=== PATIENT | female | born 1990 | race Caucasian/White ===

== ENCOUNTER 2021-03-25 20:06 | Emergency (ER) | payer OTHER ==
[2021-03-25 20:47] VITALS: BP 114/69; PULSE 91; TEMP 98.5; BMI 28.3
[2021-03-25] MEDS ORDERED: IBUPROFEN 400 MG TABLET (FP) PO ONE (21:22)
[2021-03-25 21:53] LABS: EPI CELLS 26 /uL (0-25.1); HYALINE CASTS 1 /uL (0-3.1); PH,URINE >= 9.0 (5.0-8.0); URINE APPEARANCE CLEAR; URINE BACTERIA 1023 /uL (0-1359); URINE BILIRUBIN NEGATIVE (NEGATIVE); URINE COLOR YELLOW; URINE GLUCOSE (UA) NEGATIVE (NEGATIVE); URINE KETONE NEGATIVE (NEGATIVE); URINE LEUK ESTERASE 1+ (NEGATIVE); URINE NITRITE NEGATIVE (NEGATIVE); URINE PROTEIN NEGATIVE (NEGATIVE); URINE RBC 5 /uL (0-23.9); URINE WBC 47 /uL (0-25.8)
[2021-03-25 21:54] LABS: HCG,QUALITATIVE URINE Negative
[2021-03-25] MEDS ORDERED: SULFAMETHOXAZOLE/TRIMETHOPRIM 800MG/160MG D.S. TABLET PO ONE (22:12)
[2021-03-25] MEDS ORDERED: SULFAMETHOXAZOLE/TRIMETHOPRIM 800MG/160MG D.S. TABLET ONE (22:49)
== END 2021-03-26 00:31 | disposition home or self-care (01) ==
LOC: JER 20:06
DX: N10 Acute pyelonephritis (principal); N39.0 Urinary tract infection, site not specified
CPT/HCPCS: 76775-TC; 81003; 84703; 87086; 87186; 99284-25

== ENCOUNTER 2023-08-27 01:24 | Emergency (ER) | payer OTHER ==
[2023-08-27 02:00] VITALS: BP 133/89; PULSE 64; RESP 18; TEMP 98.1; BMI 32.2
[2023-08-27] MEDS ORDERED: ACETAMINOPHEN 325 MG TABLET (FP) PO ONE (02:24)
[2023-08-27] MEDS ORDERED: ACETAMINOPHEN 325 MG TABLET (FP) ONE (02:26)
[2023-08-27] MEDS ORDERED: DEXAMETHASONE 4 MG TABLET (FP) PO ONE (02:39)
[2023-08-27] MEDS ORDERED: PSEUDOEPHEDRINE HCL 30 MG TABLET PO ONE (02:40)
[2023-08-27] MEDS ORDERED: DEXAMETHASONE 4 MG TABLET (FP) ONE (02:43)
== END 2023-08-27 03:05 | disposition home or self-care (01) ==
LOC: JER 01:24
DX: R05.9 Cough, unspecified (principal); R51.9 Headache, unspecified; J02.9 Acute pharyngitis, unspecified; M79.10 Myalgia, unspecified site; U07.1 COVID-19
CPT/HCPCS: 0241U-QW; 99283-25

== ENCOUNTER 2023-11-08 11:14 | Day surgery (SDC) | payer OTHER ==
[2023-11-08] MEDS: FERRIC CARBOXYMALTOSE 750 MG in SODIUM CHLORIDE 250 ML IVPB ONE (11:37)
[2023-11-08 13:06] VITALS: RESP 18; TEMP 98.5
[2023-11-08 13:09] VITALS: BP 115/74; PULSE 65
== END 2023-11-08 13:00 | disposition home or self-care (01) ==
LOC: JONCNONCHE 11:14 → J7W 11:16 → JONCNONCHE 13:00
PROVIDERS: ATTEND Internal Medicine Hematology & Oncology
PROC: 3E033GC Introduction of Other Therapeutic Substance into Peripheral Vein, Percutaneous Approach (ICD-10-PCS; principal; 2023-11-08)
DX: D50.9 Iron deficiency anemia, unspecified (principal)
CPT/HCPCS: 96365; J1439

== ENCOUNTER 2023-11-15 10:00 | Day surgery (SDC) | payer OTHER ==
[2023-11-15] MEDS: FERRIC CARBOXYMALTOSE 750 MG in SODIUM CHLORIDE 250 ML IVPB ONE (10:21)
[2023-11-15 12:01] VITALS: RESP 20; TEMP 98
[2023-11-15 12:02] VITALS: BP 122/74; PULSE 69
== END 2023-11-15 11:40 | disposition home or self-care (01) ==
LOC: J7W 10:00 → JONCNONCHE 10:00
PROVIDERS: ATTEND Internal Medicine Hematology & Oncology
PROC: 3E033GC Introduction of Other Therapeutic Substance into Peripheral Vein, Percutaneous Approach (ICD-10-PCS; principal; 2023-11-15)
DX: D50.9 Iron deficiency anemia, unspecified (principal)
CPT/HCPCS: 96365; J1439

== ENCOUNTER 2024-08-20 11:10 | Emergency (ER) | payer OTHER ==
[2024-08-20 11:25] VITALS: BP 108/69; PULSE 76; RESP 20; TEMP 99; BMI 27.4
[2024-08-20] MEDS ORDERED: LIDOCAINE 4% PATCH TP ONE (12:45)
[2024-08-20] MEDS ORDERED: KETOROLAC TROMETHAMINE 30 MG/1 ML VIAL ONE (12:45)
[2024-08-20] MEDS: KETOROLAC TROMETHAMINE 30 MG/1 ML VIAL IM ONE (12:50)
[2024-08-20] MEDS: LIDOCAINE 4% PATCH TP ONE (12:50)
[2024-08-20] MEDS: ACETAMINOPHEN 325 MG TABLET (FP) PO ONE (14:02)
[2024-08-20] MEDS ORDERED: LIDOCAINE PATCH REMOVAL MC ONE (22:00)
[2024-08-21 22:14] LABS: HIV INTERPRETATION NEGATIVE (NEGATIVE)
== END 2024-08-20 14:45 | disposition home or self-care (01) ==
LOC: JERFT 11:10
PROC: 3E0133Z Introduction of Anti-inflammatory into Subcutaneous Tissue, Percutaneous Approach (ICD-10-PCS; principal; 2024-08-20)
DX: M54.50 Low back pain, unspecified (principal)
CPT/HCPCS: 36415; 86803; 87389; 99284-25